=== PATIENT | male | born 1975 | race Caucasian/White ===

== ENCOUNTER 2021-11-28 14:31 | Outpatient (CLI) | payer OTHER, SELFPAY ==
[2021-12-01 02:07] LABS: Rubella Antibody IgG 65.6 IU/mL
== END 2021-11-28 14:32 | disposition home or self-care (01) ==
LOC: LONREF 14:32
PROVIDERS: PCP Family Medicine; Visit Provider Family Medicine
DX: Z78.9 Other specified health status (principal); Z11.59 Encounter for screening for other viral diseases
CPT/HCPCS: 86735; 86762; 86765

== ENCOUNTER 2024-03-13 08:42 | Outpatient (CLI) | payer OTHER, SELFPAY ==
--- OUTSIDE RECORDS SUMMARY | 2024-03-17 05:37 | XMS_ITS | Continuity of Care Document ---
Author Name [facility] Organization [facility] Care Team Providers Care Science Instructor Name Role Phone [facility] Unavailable Unavailable Immunizations Combined list of available immunizations from the Department of Defense and Veterans Affairs facilities. Immunization Series Date Given Administered By Site Reaction Lot Number CVX Code Drug Color Grinder Status Comments Source influenza, injectable, quadrivalent 2021 [id number] sanofi pasteur complet ed influenza , injectabl e, quadrival ent 02/28/22 Given Ambulat ory Pharmac y influenza virus vaccine, inactivated 2020 [id number] Seqirus complet ed influenza virus vaccine, inactivat ed 03/02/21 Given Ambulat ory Pharmac y influenza, injectable, quadrivalent- pf 2020 [id number] 150 Seqirus complet ed influenza , injectabl e, quadrival ent-pf 06/29/20 Given Ambulat ory Pharmac y influenza, injectable, quadrivalent- pf 2018 [id number] 150 Seqirus complet ed influenza , injectabl e, quadrival ent-pf 04/02/19 Given Ambulat ory Pharmac y influenza, injectable, quadrivalent- pf 2017 [id number] Seqirus complet ed influenza , injectabl e, quadrival ent-pf 03/12/18 Given Ambulat ory Pharmac y influenza, seasonal, injectable-pf 2016 [id number] 140 Seqirus complet ed influenza , seasonal, injectabl e-pf 03/27/17 Given Ambulat ory Pharmac y influenza, seasonal, injectable-pf 2015 [id number] 140 Seqirus complet ed influenza , seasonal, injectabl e-pf 02/27/16 Given Ambulat ory Pharmac y influenza, seasonal, injectable-pf 2014 [id number] 140 CSL Behring complet ed influenza , seasonal, injectabl e-pf 12/25/14 Given Ambulat ory Pharmac y influenza, seasonal, injectable-pf 2013 [id number] 140 CSL Behring complet ed influenza , seasonal, injectabl e-pf 02/25/14 Given Ambulat ory Pharmac y Influenza, seasonal, injectable, preservative free 2 2013 [id number] 140 [facility] Content [employer] ([facility]) complet ed Influenza , seasonal, injectabl e, preservat francisco free DoD hepatitis B adult vaccine 2013 [id number] 43 GlaxoSmithKli ne complet ed hepatitis B adult vaccine 08/01/13 Given Ambulat ory Pharmac y hepatitis B vaccine, adult dosage 0 2013 [id number] 43 SmithKline (SKB) complet ed hepatitis B vaccine, adult dosage DoD hepatitis B adult vaccine 2012 [id number] 43 GlaxoSmithKli ne complet ed hepatitis B adult vaccine 02/25/13 Given Ambulat ory Pharmac y tuberculin purified protein derivative 2012 [id number] 96 sanofi pasteur complet ed tuberculi n purified protein derivativ e 02/25/13 Given Ambulat ory Pharmac y hepatitis B vaccine, adult dosage 2 2012 [id number] 43 SmithKline ([facility]) complet ed hepatitis B vaccine, adult dosage DoD hepatitis B adult vaccine 2012 [id number] 43 GlaxoSmithKli ne complet ed hepatitis B adult vaccine 01/09/13 Given Ambulat ory Pharmac y hepatitis B vaccine, adult dosage 0 2012 [id number] 43 SmithKline (SK) complet ed hepatitis B vaccine, adult dosage DoD hepatitis A vaccine, adult dosage 0 2012 52 () Not Given hepatitis A vaccine, adult dosage DoD influenza, live, intranasal,qu adrivalent 2012 [id number] 149 Map[employer] Inc comple t ed influenza , live, intranasa l,quadriv alent 12/29/12 Given Ambulat ory Pharmac y poliovirus vaccine, inactivated 2012 [id number] 10 sanofi pasteur complet ed polioviru s vaccine, inactivat ed 12/29/12 Given Ambulat ory Pharmac y meningococcal A,C,Y,W-135 (MCV4P) 2012 [id number] 114 Novartis Pharmaceutica complet ed meningoco ccal A,C,Y,W-1 35 (MCV4P) 12/29/12 Given Ambulat ory Pharmac y measles/mumps /rubella virus vaccine 2012 [id number] Merck & Company Inc complet ed measles/m umps/rube lla virus vaccine 12/29/12 Given Ambulat ory Pharmac y measles, mumps and rubella virus vaccine 1 2012 [id number] 03 Merck (MSD) complet ed measles, mumps and rubella virus vaccine DoD rubella virus vaccine 0 2012 06 () Not Given rubella virus vaccine DoD mumps virus vaccine 0 2012 07 () Not Given mumps virus vaccine DoD poliovirus vaccine, inactivated 1 2012 [id number] 10 Sanofi Pasteur (PMC) complet ed polioviru s vaccine, inactivat ed DoD meningococcal polysaccharid e (groups A, C, Y and W-135) diphtheria toxoid conjugate vaccine (MCV4P) 0 2012 [id number] 114 MynewMD. (NOV) complet ed meningoco ccal polysacch aride (groups A, C, Y and W-135) diphtheri a toxoid conjugate vaccine (MCV4P) DoD influenza, live, intranasal, quadrivalent 0 2012 [id number] 149 [employer]. (MED) complet ed influenza , live, intranasa l, quadrival ent DoD varicella virus vaccine 0 2012 21 () Not Given varicella virus vaccine DoD tetanus, diphtheria, acellular pertu is 2012 [id number] 115 sanofi pasteur complet ed tetanus, diphtheri a, acellular pertussis 11/05/12 Given Ambulat ory Pharmac y tetanus toxoid, reduced diphtheria toxoid, and acellular pertu is vaccine, adsorbed 0 2012 [id number] 115 Sanofi Pasteur (PMC) complet ed tetanus toxoid, reduced diphtheri a toxoid, and acellular pertussis vaccine, adsorbed DoD Results Combined list of recent chemistry, hematology and other laboratory results from Department of Defense and Veterans Affairs, ranging from 15 months to all on record, depending upon the facility. Order Name Results Value Reference Range Date Interpretation Specimen Comments Source Infectio us Disease HIV-1/O/2 Non-Reac tive 1 (02/26/24 1:23 PM) 02/25 N Interpretiv e Data: INTERPRETAT ION: This method is a screening procedure for the detection of HIV p24 Antigen and Antibodies to HIV-1, including Group O, and/or HIV-2. NON-REACTIV E: HIV-1 antigen and HIV-1 / HIV-2 antibodies were not detected. No laboratory evidence of HIV infection. A negative test result does not exclude the possibility of exposure to or infection with HIV. HIV antibodies and/or p24 antigen may be undetectabl e in some stages of the infection and in some clinical conditions. If acute HIV infection is suspected, consider submitting another specimen to a reference laboratory for HIV-1 RNA. SCREEN REACTIVE - CONFIRMATIO N TO FOLLOW: Possible presence of HIV-1antibo dies, HIV-2 antibodies and/or HIV-1 p24 antigen. Specimen will reflex to the confirmatio n testing that fulfills the Center for Disease Control and Prevention' s HIV diagnostic algorithm. Refer to [facility] Lab Guide for additional information : [email or web address]. [email or web address]/ [email or web address] x Testing performed by Norma silva. [facility] Miscella neous Sendouts Repository Sample Received (02/26/24 1:23 PM) 02/25 N [facility] Vital Signs Combined list of inpatient and outpatient Vital Signs from Department of Defense and Veterans Affairs, ranging from 12 months to all on record, depending upon the facility. Vital Sign Value Date Comments Source No data available for this section Ambulatory Pharmacy Encounters Combined list of: 1) Encounters from Department of Veterans Affairs facilities going back up to thelast 18 months. 2) Encounters from the Department of Defense facilities going back up to 280 months. Location Location Details Encounter Type Encounter Number Reason For Visit Attending Provider ADM Date DC Date Status Disposition Source [facility]) OUTPATIENT [id number] Sports Rib Injury JASEN YANG 12/19 Released w/o Limitations [facility] [id number] [facility] Between Visit [id number] 05/21 Discharge Disposition: Home or Self Care [id number] [facility]S [id number] [facility] PHA [id number] COLTON Ramírez 02/24 [id number] [facility]S [id number] [facility] Dental [id number] KIAN MONTES 02/25 Discharge Disposition: Home or Self Care [id number] [facility]S [id number] [facility] Outpatient [id number] COLTON Ramírez 02/25 Discharge Disposition: Home or Self Care [id number] ASTS Procedures Combined list of: 1) Procedures from Department of Veterans Affairs facilities going back up to [facility] 18 months, not all VA non-surgical procedures are included; 2) All procedures from the Department of Defense facilities. Procedure Procedure Type Code Date Perfomer Comments Sourc e No data available for this section Ambulatory P harmacy Social History Combined list of available smoking, tobacco, and other social history from Department of Defense and Veterans Affairs facilities. Social History Type Response Date Comment Sourc e Male 05/15/2022 Ambulatory Pha rmacy Sexual Orientation Ambula tory Pharmacy Gender identity [facility] This section is an empty soc ial history section. DoD Assessment and Plan Combined list of future care activities from Department of Defense and Veterans Affairs facilities (e.g., assessment and plan notes, appointments, orders, and referrals). Additional future care activities may be listed in the Plan of Care section. Result Assessment and Plan Date Source Assessment and Plan Extracted from:Title : non fly pha Author: YOMAIRA CR Date: 02/26/24 V itals: Blood Pressure: 1 38/88 Height: 71 Weight: 211.2 Addendum by JEREMÍAS PEPPER on February 26, 2024 14:23 CDT Periodic Health Assessment (PHA) Disposition: In-person annual PHA Completed. PHAQ reviewed and all items addressed. [facility] 469 summary reviewed if available. Counseling provided if indicated. [id number] in ASIMS updated as required. Comments: Patient reports isolated episode of dizziness/vertigo in November of 2023 with concurrent allergic rhinitis/seasonal allergy symptoms. Reports symptoms spontaneously resolved without additional recurrent episodes. Denies associated focal neurologic deficits, hearing changes, increased tinnitus (above baseline chronic level). 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 Reports known myopia for which patient already has glasses for night time driving; reports new requirement for reading glasses for close up work in low light. 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 Reports intermittent joint pains for which he has taken NSAIDS PRN; follow up scheduled with PCM for evaluation of these concerns. Patient instructed to submit copy of records from these evaluations. World Wide Qualified: Yes ALC: N /A DW: N/A AGAM 469: No duty or fitness restrictions. No AF469 changes based on this encounter. Refer to AMRO: N/A PULHES: P1 U1 L1 H1 E1 S1 AUoF Disposition: N /A ANNUAL PERIODIC HEALTH ASSESSMENT I. 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 Last Name: TANNA 2. First Name: GABRIEL 3. Middle Name: STEFFI 4. Assessment Date: 5. : 6. Age: 48 7. Gender: M 8. DoD ID Number: [id number] 9. Service Branch: [employer] 10. 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 Unit Name: [facility] [employer] 14. Duty Station/Location: [facility] 15. UIC: [id number] 16. Is this your first Periodic Health Assessment (PHA)?: N 17. Are you enrolled in a secure messaging system with your health care provider?: 18. Current contact information: Preferred Method: Night Time Phone DSN: Day Time Phone: [phone] Night Time Phone: [phone] Email 1: [email or web address] Email 2: [email or web address] Address: [address] [place] [address]: [facility]: [place] Zip Code: [address] 19. Point of contact who can always reach you: Name: Ruby Lynn Phone 1: [phone] Phone 2: EMAIL: Address: [address] [place] [address]: [facility]: [place] Zip Code: [address] II. DEPLOYMENT INFORMATION (DEP) 1. [ 0 ] Total number of deployments in the PAST 5 YEARS 4. [ N ] Are you going to deploy within the NEXT 120 DAYS? III. 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 [ No ] Does your specialty require an operational duty physical exam? 4. [ No ] Are you currently enrolled in a medical surveillance/occupational health program?: No IV. MEDICAL CONDITIONS (LONA): 1. Since your last PHA, have you experienced any of the following health conditions, and if so, what is your status? [ Change in vision, Periods of dizziness, fainting, or loss of consciousness, Persistent or recurring noises in head or ears ] Conditions with no medical care [ ] Conditions with medical care, but no longer under treatment [ ] Conditions with medical care, and NOW under treatment 2. Since your last PHA, have you experienced any of the following health conditions, and if so, what is your status? [ Recurring muscle, joint, or low back pain ] Conditions with no medical care [ ] Conditions with medical care, but no longer under treatment [ ] Conditions with medical care, and NOW under treatment 3. For any condition marked YES in question 1 or 2, are you currently on any profile or limited duty for that condition? [ ] Conditions 4. [ No ] Have you been based or stationed at a location where an open burn pit was used? 5. [ No ] Have you been exposed to toxic airborne chemicals or other airborne contaminants? 8. Have you had any surgery since your last PHA?: No 10.a. [ No ] Since your last PHA, has a health care provider recommended surgery(s) that you have not had? 11.a. [ No ] Do you currently require hearing aids, special medical supplies, CPAP, adaptive equipment, assistive technology devices, and/or other special accommodations? 12.a. [ No ] Do you have a waiver or profile for any part of your Service's physical fitness test? 13.a. [ No ] Do you have any problems wearing a gas mask, ballistic helmet, body armor, and/or chemical/biological protective garments? 14.a. [ No ] Have you ever been told by a health care provider that you SHOULD NOT receive an immunization for medical reasons? 15.a. [ No ] Do you have a permanent profile or an Assignment Limitation Code C? 16.a. [ No ] Are you on a temporary profile or limited duty? 17. [ 0 ] During the PAST 2 years, how many times have you been placed on a temporary profile or on limited duty? V. INDIVIDUAL MEDICAL READINESS (IMR) 1. [ No ] Do you have any allergies? 3. [ Not required ] Do you have red medical warning dog tags? 4. [ Yes ] Do you wear corrective lenses? 5. [ 0 ] How many pairs of glasses do you have? 6. [ No ] Do you have gas mask inserts? . BEHAVIORAL HEALTH (MHA) 1. a. [ None ] Over the PAST MONTH, what major life stressors have you experienced that are a cause of significant concern or make it difficult for you to do your work, take care of things at home, or get along with other people (for example, serious conflicts with others, relationship problems, or a legal, disciplinary or financial problem)? 2. a. [ No ] In the PAST YEAR did you receive care for any mental health condition or concern such as, but not limited to post traumatic stress disorder (PTSD), depression, anxiety disorder, alcohol abuse or substance abuse? 3. [ Yes Naproxen Sodium, Bengay ] What prescription or over-the counter medications (including herbals/supplements) for sleep, pain, combat stress, or a mental health problem are you CURRENTLY taking? 4. a. [ No ] In the past 12 months, have you gambled? 5. a. [ Monthly or less ] How often do you have a drink containing alcohol? 5. b. [ 1 or 2 ] How many drinks containing alcohol do you have on a typical day when you are drinking? 5. c. [ Never ] How often do you have six or more drinks on one occasion? 6. Have you ever had any experience that was so frightening, horrible, or upsetting that in the PAST MONTH, you: 6. a. [ No ] Have had nightmares about it or thought about it when you did not want to? 6. b. [ No ] Tried hard not to think about it or went out of your way to avoid situations that remind you of it? 6. c. [ No ] Were constantly on guard, watchful or easily startled? 6. d. [ No ] [place] numb or detached from others, activities, or your surroundings? 6. e. [ Not answered ] [place] guilt or unable to stop blaming yourself or others for the event(s) or any problems the event(s) may have caused? 7. Over the LAST 2 WEEKS, how often have you been bothered by the following problems? 7. a. [ Not at all ] Little interest or pleasure in doing things 7. b. [ Not at all ] Feeling down, depressed, or hopeless 8. [ No ] Would you like to schedule an appointment with a health care provider to discuss any health concern(s)? 9. [ No ] Are you interested in receiving information or assistance for a stress, emotional or alcohol concern? 10. [ No ] Are you interested in receiving assistance for a family or relationship concern? 11. [ No ] Would you like to schedule a visit with a hydraulic jack operator, mental health care provider, or a community support counselor? VII. FAMILY HISTORY AND LIFESTYLE (LIF) 1. [ Very Good ] Overall, how would you rate your health during the PAST MONTH? 2. [ Canc ] Member indicates that family members have the following problems 3. The following family members has/had a history of cancer: Prostate: Grandfather Melanoma: Mother 6. [ No ] I participate in moderate intensity physical activites at least 2.5 hours, or a combination of moderate and vigorous aerobic activites, for at least 75 minutes per week. 7. In a typical week, I do physical activities specifically designed to STRENGTHEN my muscles: [ 2 ] Day(s) per week 8. [ Advil ] What prescriptions or cssy-nax-fakotig medications are you CURRENTLY taking for health problems on a ROUTINE BASIS? 9. Which of the following products have you taken since your last PHA: Energy Shots, NOT including energy drinks: Less than once a month Multi-Vitamins: Once a day Individual Vitamins or Minerals: Once a day Vitamin D: Less than once a month 11. Think about the PAST 30 DAYS. How often did you eat/drink the following foods/beverages? [ 1 serving per day ] Fruits [ 1 serving per day ] Vegetables [ 1 serving per day ] Starchy Vegetables [ 1 or 2 servings per week ] Whole Grains [ 1 or 2 servings per week ] Dairy and Calcium Containing Foods [ Rarely or Never ] Fish [ 3 to 6 servings per week ] Lean Protein [ 1 serving per day ] Sugar-Sweetened Beverages 12. [ No ] Have you had a cholesterol check by a health clinical care manager within the PAST 5 YEARS? 13.a. In the PAST 30 DAYS, which of the following products have you used on at least one day? None 15. Which of the following best describes your past tobacco use? I have never used tobacco products. 16. [ No ] Are you regularly exposed to secondhand smoke? 17. [ 5 to less than 7 hours ] During the LAST 2 WEEKS, how many hours of sleep did you get on most days? 18. [ No ] During the LAST 2 WEEKS, have you felt impaired or unable to adequately perform due to sleepiness or poor quality sleep? 19. [ No ] Have you had any unexplained weight loss or gain since your last PHA? 20. Member is not at risk for sexually transmitted infections. 22. Since your last PHA, what, if anything, have you and your partner used to keep from getting ? [ Sterilization ] I am actively taking steps to prevent , including 23. [ No ] In the last year, have you or your partner had a scare, where you were not trying to get but were worried enough to use a home test? IX. RESERVE COMPONENT (RES) 1. [ No ] Do you have an injury, illness, Or disease which was incurred or aggravated while in a duty status since your last PHA? 4. [ Yes - Other health insurance ] Are you currently coverered under a health insurance policy? 5.a. [No, I have never applied for Worker's Compensation ] Do you have any current physical or mental health limitations related to a Worker's Compensation claim? 6. [ No ] Have you applied for or have you received a VA disability rating? X. OTHER MEDICAL (OTH) 1. [ 6 ] Rate the amount of pain you have had, on average, over the PAST 24 HOURS 2. [ No ] Are you receiving treatment for pain? 3. [ No ] Since your last PHA, have you received care or treatment for any medical and/or mental health condition(s) from a civilian or non- facility? 5. Member acknowledged responsibility for reporting health issues. 7. [ No ] Woud you like to schedule an appointment with a health care provider to discuss any health concerns? XI. SEPARATION AND FPC 1. [ No ] Are you planning to separate or retire within the next year from Active Duty or [place]ce[place] Duty (activated for greater than 30 continuous days) OR do you intend to file a claim for disability compensation with the Veterans Benefits Administration? PART B. RECORD REVIEW AND RECOMMENDATIONS I. RECORD REVIEWER INFORMATION 1. Last Name: THUY 2. First Name: ALMA ROSA 3. Middle Name: 4. Service Branch: [employer] 5. 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 EMAIL: [email or web address] 8. Facility: [address] 9. Unit: [address] 10. Address: [address] [place] [address] 11. State: [place] 12. Zip Code: [id number] 13. Phone: [phone] 14. Date Record Review: II. MEDICAL SCREENING 1. [ ] Date of natural resources faculty member's most recent PHA 2. [ 5 feet 11 inches Date: ] natural resources faculty member's most recently documented height 3. [ 201 pounds Date: ] natural resources faculty member's most recently documented weight 4. [ 122/86 Date: ] natural resources faculty member's most recently documented blood pressure reading 5. [ No ] Does the natural resources faculty member have a history of abnormal blood pressure since their last PHA? 6. [ Yes ] Does the natural resources faculty member have a laboratory test of sickle cell trait documented in their permanent medical record? 7. [ No Cholesterol Test Documented ] What is the date of the natural resources faculty member's most recently documented cholesterol test? 8. [ No Colon Cancer Screening Documented ] What is the date of the natural resources faculty member's most recently documented colon cancer screening? 9. [ ADVIL PRN Bengay PRN Claritin PRN Supergreens/Superbeets Multivitamin ] List of natural resources faculty member's active medications listed in their permanent medical record 10. [ No ] Is there a discrepancy between the active medication record review and the natural resources faculty member's self-reported list of medications? 11. [ SM reports no outside care. ] List documented significant care the natural resources faculty member has received since their last PHA from a provider OUTSIDE the Health System 12. [ No ] Is there a discrepancy between the natural resources faculty member's list of OUTSIDE care (from OTH5), and the OUTSIDE care found in the record? 13. [ No Inside Care Documented ] List documented significant care the natural resources faculty member has received since their last PHA from a provider INSIDE the Health System 15. [ Not Answered ] Confirm that vaccine exemptions are listed in the medical record for each vaccine listed IV. FAMILY HISTORY AND LIFESTYLE 1. [ Yes ] Does the [id number] reflect the natural resources faculty member's reported family history? VII. INDIVIDUAL MEDICAL READINESS 1. [ No ] Does the natural resources faculty member have an Assignment Limitation Code C? 3. [ Classification: 1 ] Most recently documented dental exam 4. [ No: Influenza, [place] ] Is the natural resources faculty member current on all required immunizations in the immunization tracking system? 5. [ Yes ] Is the natural resources faculty member current with Service-specific requirements for glasses and gas mask inserts? 6. Does the natural resources faculty member have the following laboratory tests documented in their permanent medical record? [ Yes ] HIV test within the PAST 24 months [ Yes ] G6PD results on file [ Yes ] Blood type and Rh on file [ Yes ] DNA test on file IX. ADDITIONAL RECORD REVIEWER COMMENTS 1. This record review does NOT have a need for provider notification or referral.2. Additional comments about this record review that need to be forwarded to the Health Dye Mixer completing PART C: MARIA ANTONIA is due for annual PHA. Records have been reviewed. Member reported episodes of dizziness, which he described as sort of a vertigo feeling. He said it always happens around the same time as his allergies are bad. He also had a change in vision but needs to get new glasses. Date Record Review Completed: --------- PART C. HEALTH CARE PROVIDER I. MENTAL HEALTH ASSESSMENT (MHA) PROVIDER INFORMATION 1. Last Name: JACOB 2. First Name: PEDRO 3. Middle Name: 4. Service Branch: Other 5. 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 EMAIL: [email or web address] 8. Facility: [facility] Admin Office 9. Unit: N/A 10. [facility] 11. State: [place] 12. Zip Code: [address] 13. 14. Date HCP Review initiated: 1. Member marked that they did not have a concern or a difficulty with a major life stressor. 2. Address concerns identified on member questions 2 and 3. History of mental health care: N/A Member's response: Provider's comments: Medications: Member indicated concern or yes Member's response: Naproxen Sodium, Bengay Naproxen Sodium, Bengay Provider's comments: Continue as directed on packaging, follow up with PCM as needed. 3. Member's AUDIT-C screening score was 1. (nothing required) 4. Member did not mars yes on two or more of questions 6a through 6e. 5. Member did not mars More than half the days or nearly every day on question 7a or 7b. 6. Suicide risk evaluation. 6. a. Ask: Over the past month, have you wished you were or wished you could go to sleep and not wake up?: No 6. b. Ask: Have you actually had any thoughts of killing yourself?: No 6. f. 1. Ask: In you lifetime, have you done anything, started to do anything, or prepared to do anything to end your life?: No 6. g. Further risk assessment comments: SM denies any significant life stressors. 7. Member states that they have not had thoughts or concerns over the past month that they might hurt or lose control with someone. 9. Summary of Provider's identified concerns needing referrals: None 11. Comments: Influenza vaccine will be administered today. Annual dental exam scheduled this weekend. SM missing issued glasses and mask inserts. SM denies any SI/HI. SM does not have a TEMP or PERM profile. SM reports chronic conditions: - Lower back pain managed conservatively, does not limit daily duties - Vision changes- difficulty w/near sighted vision- recommend comprehensive eye exam and updated rx - Dizziness- has been occurring every november for the past several year- increased sinus and ear pressure- Ragweed allergy vs ETD vs vertigo??? conducts nasal sinus rinses. Recommend further eval if symptoms return or worsen. SM advised to follow up with PCM for annual physical exam. 13. Supplemental services recommended/information provided: No supplemental services required Date MHA Certified: III. PERIODIC HEALTH ASSESSMENT (PHA) PROVIDER INFORMATION 1. Last Name: SHANTELLE 2. First Name: JEREMÍAS 3. Middle Name: 4. Service Branch: [employer] 5. Status: Reservist 6. Title: Physician (DO REID) 7. EMAIL: [email or web address] 8. Facility: [address] [facility] 9. Unit: [address] [facility] 10. Address: [address] [place] [address] 11. State: [place] 12. Zip Code: [address] 13. 14. Date HCP Review initiated: IV. PERIODIC HEALTH ASSESSMENT PROVIDER RECOMMENDATIONS and REFERRALS 1. Provider concerns with this assessment: No issues or concerns identified V. SUMMARY AND COMMENTS 1. Additional information summarizing findings during the natural resources faculty member assessment: 2. Provider Comments: . INDIVIDUAL MEDICAL READINESS DISPOSITION DETERMINATION LONA: Ready DEN: Ready IMM: Ready LAB: Ready ME: Ready IMR Status: Fully Medically Ready VII. SERVICE MEDICAL DEPLOYABILITY EVALUATION INDICATED Based on your review of all documentation, is the natural resources faculty member medically deployable without limitations? Reference [facility] 6490.07 Yes (natural resources faculty member DOES NOT currently have a medical condition that limits deployability) Date PHA Completed: END OF [id number] REPORT //Signed// Lt Col Jeremías Pepper Jr., MD Flight Surgeon [address], [place] 03/17/2024 Ambulatory Pharmacy Functional Status Combined list of recent functional and cognitive assessments recorded at [employer] (VA).VA Functional Yellow Medicine Measurement (FIM) Scale: 1 = Total Assistance (Subject = 0% +), 2 = Maximal Assistance (Subject = 25% +), 3 = Moderate Assistance (Subject = 50% +), 4 = Minimal Assistance (Subject = 75% +), 5 = Supervision, 6 = Modified Yellow Medicine (Device), 7 = Complete Yellow Medicine (Timely, Safely). Assessment Date/Time Source Assessment Type Assessment Skill Assessment Score Assessment Details No data available for this section
== END 2024-03-13 08:43 | disposition home or self-care (01) ==
LOC: NFLDREF 03-17 05:35
PROVIDERS: PCP Family Medicine; Referring Provider Family Medicine; Visit Provider Family Medicine
DX: Z00.00 Encounter for general adult medical examination without abnormal findings (principal); E78.5 Hyperlipidemia, unspecified; Z12.5 Encounter for screening for malignant neoplasm of prostate
CPT/HCPCS: 80053; 80061; G0103

== ENCOUNTER 2024-04-14 07:30 | Outpatient (RCR) | payer OTHER, SELFPAY ==
--- NOTE | 2024-04-07 18:08 | PT.OPEX ---
PT [place] Outpatient Eval PT [facility] Outpatient Eval Start: 04/07/24 15:17 Freq: Status: Active Protocol: Document 04/07/24 15:17 CHRISTIAN (Rec: 04/07/24 18:00 CHRISTIAN [id number]) E-signed By Evita Denis DPT Physical Therapy Outpatient Evaluation Insurance Information Recert Due Date 07/06/24 Insurance Name Other; See Comments Insurance Information/Comments Medical Diagnosis bilateral knee pain LBP Treating Diagnosis LBP, bilateral knee pain L>R, core/hip/glut/VMO weakness, lateral patellar tracking bilaterally, limited tolerance for extended sitting/standing /driving, interrupted sleep Subjective Subjective Patient reports chronic LBP and bilateral knee pain. He reports flare up of back pain early February when he got sick, sneezed and threw out his back. He is feeling a little better but reports some ongoing pain. Also has bilateral knee pain for years. He hasn't had any prior PT for back or knee pain issues. Also reports some other chronic pain issues with his neck and shoulder. He reports having xrays of his knees - states it showed some OA. He is using advil for pain. Reports having pain meds and muscle relaxers to use as needed. Pain rated 1/10 this session. States that his back pain can get up to 10/10 when flare up. He wasn't able to get his socks, shoes on and walking was difficult. He reports some flare up of back with with extended sitting/ driving, has to commute to the [employer] for work. He denies any prior back or knee injections. No prior MRIs. 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 Patient reports doing some yoga classes in the past, some regular stretching, occasional running. He is on his feet about 50% of the time for work activities with the [employer] as a [place]. 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 Patient hoping PT can be helpful in decreasing his pain , improving his back/core strength, and returning to his regular activities with manageable pain. 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 He reports his back pain and bilateral knee pain is chronic. He flared up his back pain with sneezing in early February. Reports pain/ sx have been feeling better. Pain this session rated 1/10. Pain up to 10/10 when flared up - daily activities, walking were difficulty, limited. Patient running late to PT appt so eval session was limited. Trunk ROM with general tightness, stiffness. Bilateral hamstring, hip flexor tightness. Weak VMO with lateral patellar tracking bilaterally. Bilateral knee ROM WFL with 0-0-140 degrees. Pelvic alignment assessed, equal this session. Patient reports hx of chiropractic treatments, nothing lately. Patient would benefit from skilled PT for pain/sx management, core/hip/glut/VMO/ LE strengthening, improved patellar tracking, posture/ body mechanics training, and establishment of HEP. Plan of Care Rehabilitation Potential Good Physical Therapy Goals 1. Decrease LBP, bilateral knee pain to less than/equal to 3/10 with daily activities and with the progression of PT activities over the next 4-6 weeks. 2. Patient will be educated on posture/body mechanics and pain management strategies over the next 3-4 weeks for decreased stress on LB/knees and decreased LBP/knee pain. 3. Improve core/hip/glut strength over the next 8-10 weeks for improved posture, improved pelvic/spine stability, decreased stress on LB/pelvis/hip, decreased LBP, and improved tolerance for extended sitting/standing/ walking for daily/work activities. 4. Improve core/hip/glut/VMO/ LE strength over the next 8 weeks for improved patellar tracking, decrease stress to bilateral knees, and improved tolerance for extended standing/walking for daily/work activities. 5. Improve balance/ proprioception over the next 8 weeks for improved stability with static/dynamic activities , decreased stress to bilateral knees, improved gait , and improved tolerance for extended standing/walking for daily/work activities. 6. Patient will be I with HEP within 10 weeks for progression toward above goals, ongoing self- management of pain/sx, ongoing self improvements in core/hip/glut/VMO/LE strength, posture/body mechanics, and for improved tolerance for extended sitting /standing/walking activities. Coordination/Communication With Referral Source Treatment Plan/Direct Interventions Manual Therapy,Neuromuscular Re-ed,Therapeutic Exercises Frequency/Duration 1x/week Patient Will Be Discharged From Therapy Completion of LTG(s),Skills Plateau,Independent w/HEP, Independently Progressing Evaluation Billing Untimed Code Treatment Minutes 25 Complexity Moderate Certification Information Initial Certification Date 04/07/24 Ending Certification Date 07/06/24 Provider Signature Required Yes Provider Signature Shows Agreement With POC & Medical Necessity Physician NPI Number Write NPI# Here Physician Comment/Change : Physician Signature & Date Requested Please Sign/Date Here
== END 2024-08-12 23:59 | disposition home or self-care (01) ==
PROVIDERS: PCP Family Medicine; Visit Provider Family Medicine
DX: M25.561 Pain in right knee (principal); M25.562 Pain in left knee; M54.50 Low back pain, unspecified; Z51.89 Encounter for other specified aftercare
CPT/HCPCS: 97110; 97140; 97162